=== PATIENT | female | born 1995 | race African-American/Black ===

== ENCOUNTER 2016-11-08 22:10 | Emergency (ER) | payer OTHER ==
[~2016-11-08 22:10] MED LIST: BACT800T5 PO; EXCETAB PO; FERR325T PO; HYDR-3516 PO; LEVA500T PO
[2016-11-08 22:13] VITALS: BP 154/94; PULSE 57; RESP 16; TEMP 97.7; O2SAT 100
--- NOTE | 2016-11-08 22:51 | PD ---
Physical Exam Date Seen by Provider: Nov 08, 2016 Time Seen by Provider: 22:49 Narrative 21 YOBF 2-3 DAY H/O N/V, NOYOLA, GENERAL MALAISE. NO F/C .NO URINE PROBLEMS. LMP VSS. AWAITING BED PLACEMENT Data Data Last Documented VS Vital Signs Date Time Temp Pulse Resp B/P Pulse Ox O2 Delivery O2 Flow Rate FiO2 11/08/16 22:13 97.7 57 16 154/94 100 MDM Medical Record Reviewed: Yes Supervised Visit with MYA: Yes Ab Del Toro Nov 08, 2016 22:51
--- NOTE | 2016-11-08 23:03 | PD ---
HPI Chief Complaint: GI Complaint Time Seen by Provider: 23:02 Travel History International Travel<30 days: No Contact w/Intl Traveler<30days: No Traveled to known affect area: No History of Present Illness HPI Patient 21-year-old female presents with suprapubic abdominal pain over the past 2-3 days associated with some headache and some nausea without vomiting. Patient also endorses some vaginal discharge she states weight in nature. Denies a possibility for that she is sexually active and intermittently uses protection. She denies any constipation diarrhea. Denies any vaginal bleeding. States is never happened to her before. PFSH Past Medical History Diminished Hearing: No Psychiatric: No ?: Not LMP: 10/19/16 : 0 Para: 0 Past Surgical History Other Surgery: Yes (breast reduction, [place] Social History Alcohol Use: No Tobacco Use: No Substance Use: No Allergies-Medications (Allergen,Severity, Reaction): Coded Allergies: No Known Allergies (Unverified , 11/08/16) Reported Meds & Prescriptions Reported Meds & Active Scripts Active Flagyl (Metronidazole) 500 Mg Tab 500 Mg PO BID 7 Days Review of Systems Except as stated in HPI: all other systems reviewed are Neg Physical Exam Narrative GENERAL: Well-developed well-nourished no apparent distress, sitting upright in a stretcher comfortable. SKIN: Focused skin assessment warm/dry. HEAD: Atraumatic. Normocephalic. EYES: Pupils equal and round. No scleral icterus. No injection or drainage. ENT: No nasal bleeding or discharge. Mucous membranes pink and moist. NECK: Trachea midline. No JVD. CARDIOVASCULAR: Regular rate and rhythm. No murmur appreciated. RESPIRATORY: No accessory muscle use. Clear to auscultation. Breath sounds equal bilaterally. GASTROINTESTINAL: Abdomen soft, non-tender, nondistended. Hepatic and splenic margins not palpable. GENITOURINARY: Patient has normal external genitalia without any lesions or rash. There is scant creamy white discharge in the vaginal vault. No cervical motion tenderness no cervical irritation. No bimanual tenderness. Vaginal bleeding and cervix closed. Consistent with bacterial vaginosis. MUSCULOSKELETAL: No obvious deformities. No clubbing. No cyanosis. No edema. NEUROLOGICAL: Awake and alert. No obvious cranial nerve deficits. Motor grossly within normal limits. Normal speech. PSYCHIATRIC: Appropriate mood and affect; insight and judgment normal. Data Data Last Documented VS Vital Signs Date Time Temp Pulse Resp B/P Pulse Ox O2 Delivery O2 Flow Rate FiO2 11/09/16 02:51 98.1 65 18 129/81 100 Room Air Orders Urinalysis - C+S If Indicated (11/08/16 23:03) Ed Urine Pregnancytest Poc (11/08/16 23:03) Complete Blood Count With Diff (11/08/16 23:56) Basic Metabolic Panel (Bmp) (11/08/16 23:56) Ecg Monitoring (11/08/16 23:56) Iv Access Insert/Monitor (11/08/16 23:56) Oximetry (11/08/16 23:56) Sodium Chloride 0.9% Flush (Ns Flush) (11/09/16 00:00) Prochlorperazine Inj (Compazine Inj) (11/09/16 00:00) Diphenhydramine Inj (Benadryl Inj) (11/09/16 00:00) Wet Prep Profile (11/08/16 23:56) Gc And Chlamydia Pcr (11/08/16 23:56) Urine Culture (11/09/16 00:36) Labs Laboratory Tests Test 11/09/16 11/09/16 11/09/16 00:36 00:43 02:36 Urine Color YELLOW Urine Turbidity HAZY Urine pH 5.5 Urine Specific [place] 1.011 Urine Protein NEG mg/dL Urine Glucose (UA) NEG mg/dL Urine Ketones NEG mg/dL Urine Occult Blood NEG Urine Nitrite NEG Urine Bilirubin NEG Urine Urobilinogen LESS THAN 2.0 MG/DL Urine Leukocyte Esterase LARGE Urine RBC 9 /hpf Urine WBC 16 /hpf Urine Squamous Epithelial 37 /hpf Cells Urine Renal Epithelial Cells 2 /hpf Urine Bacteria RARE /hpf Urine Mucus FEW /lpf Microscopic Urinalysis Comment CULTURE INDICATED White Blood Count 8.7 TH/MM3 Red Blood Count 4.89 MIL/MM3 Hemoglobin 12.1 GM/DL Hematocrit 37.5 % Mean Corpuscular Volume 76.7 FL Mean Corpuscular Hemoglobin 24.7 PG Mean Corpuscular Hemoglobin 32.2 % Concent Red Cell Distribution Width 15.4 % Platelet Count 257 TH/MM3 Mean Platelet Volume 9.3 FL Neutrophils (%) (Auto) 47.2 % Lymphocytes (%) (Auto) 44.0 % Monocytes (%) (Auto) 5.5 % Eosinophils (%) (Auto) 2.4 % Basophils (%) (Auto) 0.9 % Neutrophils # (Auto) 4.1 TH/MM3 Lymphocytes # (Auto) 3.8 TH/MM3 Monocytes # (Auto) 0.5 TH/MM3 Eosinophils # (Auto) 0.2 TH/MM3 Basophils # (Auto) 0.1 TH/MM3 CBC Comment AUTO DIFF Differential Comment AUTO DIFF CONFIRMED Platelet Estimate NORMAL Platelet Morphology Comment NORMAL Sodium Level 139 MEQ/L Potassium Level 3.7 MEQ/L Chloride Level 102 MEQ/L Carbon Dioxide Level 29.0 MEQ/L Anion Gap 8 MEQ/L Blood Urea Nitrogen 5 MG/DL Creatinine 0.76 MG/DL Estimat Glomerular Filtration 114 ML/MIN Rate Random Glucose 84 MG/DL Calcium Level 8.7 MG/DL Clue Cells (Wet Prep) NONE SEEN Vaginal Trichomonas (Wet Prep) NONE SEEN Vaginal Yeast (Wet Prep) NONE SEEN Chlamydia trachomatis DNA NOT DETECTED (PCR) Neisseria gonorrhoeae DNA NOT DETECTED (PCR) MDM Medical Decision Making Medical Screen Exam Complete: Yes Emergency Medical Condition: Yes Differential Diagnosis Bacterial vaginosis, STD, headache, candidal vaginosis, . Highly doubt intracranial abnormality. Narrative Course Patient roomed emergency department, she was given Benadryl Compazine and had complete relief of her nausea vomiting abdominal pain and headache symptoms. Her physical exam is consistent with BV. Her labs reassuring. Urine is highly contaminated likely from the BV. 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 Did discuss STD risk patient thinks that she is fairly low risk. Discussed that I have sent an STD probe for gonorrhea and chlamydia and we will call her if the results are abnormal. Otherwise she stable for discharge at this time. Discussed and medic management return to ED criteria.. Patient states She does have a ride home. Diagnosis Primary Impression: BV (bacterial vaginosis) Additional Impression: Head ache Qualified Code: R51 - Nonintractable headache, unspecified chronicity pattern , unspecified headache type Med/Other Pt SpecificInfo: Prescription(s) given Scripts Metronidazole (Flagyl)500 Mg [id number] Mg PO BID 7 Days Ref 0 Prov:Milan Flores MD 11/09/16 Disposition: 01 DISCHARGE HOME Condition: Stable Milan Flores MD Nov 08, 2016 23:03
[2016-11-08 23:45] VITALS: BP 155/94; PULSE 52; RESP 18; O2SAT 100
[2016-11-09] MEDS ORDERED: PROCHLORPERAZINE INJ 10 MG/2 ML VIAL IVP ONE
[2016-11-09] MEDS ORDERED: SODIUM CHLORIDE 0.9% FLUSH 10 ML FLUSH IVF PRN
[2016-11-09] MEDS ORDERED: diphenhydrAMINE HCL 50 MG/ML VIAL IVP ONE
[2016-11-09 00:48] VITALS: O2SAT 99
[2016-11-09 01:05] LABS: BACTERIA, URINE RARE /hpf; BLOOD, URINE NEG (NEG); COMMENT (UR) CULTURE INDICATED; CULTURE IF INDICATED CULTURE INDICATED; GLUCOSE,URINE NEG (NEG); KETONE, URINE NEG (NEG); MUCUS URINE FEW /lpf (OCC); NITRITE,URINE NEG (NEG); PH, URINE 5.5 (5.0-8.5); RENAL EPITHELIAL CELLS 2 /hpf; SQUAMOUS EPITHELIAL CELL URINE 37 /hpf (0-5); URINE COLOR YELLOW (YELLW/STRAW)
[2016-11-09 01:05] LABS: AUTOMATED NEUTROPHIL # 4.1 TH/MM3 (1.8-7.7); BASOPHIL # 0.1 TH/MM3 (0-0.2); BASOPHIL % 0.9 % (0.0-2.0); EOSINOPHIL # 0.2 TH/MM3 (0-0.4); EOSINOPHIL % 2.4 % (0.0-4.0); HEMATOCRIT 37.5 % (35.0-46.0); LYMPHOCYTE # 3.8 TH/MM3 (1.0-4.8); MEAN CELL VOLUME 76.7 FL (80.0-100.0); MEAN CORPUSCULAR HEMOGLOBIN 24.7 PG (27.0-34.0); MEAN CORPUSCULAR HGB CONC 32.2 % (32.0-36.0); MONO % 5.5 % (0.0-8.0); NEUT % 47.2 % (16.0-70.0); PLATELET COUNT 257 TH/MM3 (150-450); RED BLOOD COUNT 4.89 MIL/MM3 (4.00-5.30); RED CELL DISTRIBUTION WIDTH 15.4 % (11.6-17.2); WHITE BLOOD COUNT 8.7 TH/MM3 (4.0-11.0)
[2016-11-09 01:08] LABS: HEMO FLAGS AUTO DIFF
[2016-11-09 01:15] LABS: POTASSIUM 3.7 MEQ/L (3.5-5.1)
[2016-11-09 02:09] LABS: PLATELET ESTIMATE SMEAR NORMAL (NORMAL); PLATELET MORPHOLOGY NORMAL (NORMAL); SCAN/DIFF AUTO DIFF CONFIRMED
[2016-11-09] MEDS ORDERED: METR-1 PO (02:40)
[2016-11-09 02:51] VITALS: BP 129/81; PULSE 65; RESP 18; TEMP 98.1; O2SAT 100
[2016-11-09 04:19] LABS: CHLAMYDIA PCR NOT DETECTED (NOT DETECT); NEISSERIA PCR NOT DETECTED (NOT DETECT)
== END 2016-11-09 03:18 | disposition home or self-care (01) ==
LOC: NEPE 22:10
DX: N76.0 Acute vaginitis (principal); B96.89 Other specified bacterial agents as the cause of diseases classified elsewhere; R51 Headache
CPT/HCPCS: 80048; 81001; 84703; 85025; 87086; 87210; 87491; 87591; 96374; 96375; 99284; J0780; J1200

== ENCOUNTER 2016-12-26 21:54 | Emergency (ER) | payer OTHER ==
[~2016-12-26 21:54] MED LIST changes: -BACT800T5 PO; -EXCETAB PO; -FERR325T PO; -HYDR-3516 PO; -LEVA500T PO; +METR-1 PO
[2016-12-26 21:56] VITALS: BP 117/68; PULSE 59; RESP 16; TEMP 99.2; O2SAT 100
--- NOTE | 2016-12-26 22:43 | PD ---
HPI Chief Complaint: Allergic/Adverse Reaction Time Seen by Provider: 22:43 Travel History International Travel<30 days: No Contact w/Intl Traveler<30days: No Traveled to known affect area: No History of Present Illness HPI 21-year-old female presents to emergency department for evaluation of possible reaction. Patient states around 8:00 this evening she ate some shrimp and other white fish and noticed red bumps forming on her face. She states these worsened and extended to her chest and upper extremities. She denies any oral sensation of swelling or sensation of throat closing. Denies any chest pain or tightness. States that the lesions itch. Denies any pain. States she has had shrimp and this fish in the past without reaction but has also had a similar reaction to an unknown substance. She cannot recall any other new exposures. No recent illnesses, fever, or chills. She has not started any new medications. She has no other symptoms reported this time. [facility] Past Medical History Medical History: Denies Significant Hx Diminished Hearing: No Psychiatric: No Tetanus Vaccination: Unknown Influenza Vaccination: No ?: Not LMP: 1 MONTH AGO : 0 Para: 0 Past Surgical History Other Surgery: Yes (breast reduction, [place]uction [place] 07[place]17 [place]) Social History Alcohol Use: No Tobacco Use: No Substance Use: No Allergies-Medications (Allergen,Severity, Reaction): Coded Allergies: No Known Allergies (Unverified , 12/26/16) Reported Meds & Prescriptions Reported Meds & Active Scripts Active No Active Prescriptions or Reported Medications Review of Systems Except as stated in HPI: all other systems reviewed are Neg Physical Exam Narrative GENERAL: Well-nourished female patient, in no acute distress SKIN: Focused skin assessment warm/dry. Mildly erythematous but blanchable wheals over the face, chest, and proximal upper extremities. HEAD: Atraumatic. Normocephalic. EYES: Pupils equal and round. No scleral icterus. No injection or drainage. ENT: Mucosa pink and moist. No erythema or exudates. No uvular edema. No uvular , palatal, or tonsillar deviation. Airway patent. Nasal turbinates appear normal without nasal blood, purulent drainage or septal hematoma. NECK: Trachea midline. No JVD. No stridor CARDIOVASCULAR: Regular rate and rhythm. No murmur appreciated. RESPIRATORY: No accessory muscle use. Clear to auscultation. Breath sounds equal bilaterally. GASTROINTESTINAL: Abdomen soft, non-tender, nondistended. Hepatic and splenic margins not palpable. MUSCULOSKELETAL: No obvious deformities. No clubbing. No cyanosis. No edema. NEUROLOGICAL: Awake and alert. No obvious cranial nerve deficits. Motor grossly within normal limits. Normal speech. PSYCHIATRIC: Appropriate mood and affect; insight and judgment normal. Data Data Last Documented VS Vital Signs Date Time Temp Pulse Resp B/P Pulse Ox O2 Delivery O2 Flow Rate FiO2 12/26/16 22:14 12/26/16 21:56 99.2 59 16 100 Room Air Orders Dexamethasone Inj (Decadron Inj) (12/26/16 22:45) Diphenhydramine (Benadryl) (12/26/16 22:45) Famotidine (Pepcid) (12/26/16 22:45) MDM Medical Decision Making Medical Screen Exam Complete: Yes Emergency Medical Condition: Yes Medical Record Reviewed: Yes Differential Diagnosis Allergic reaction versus urticarial rash versus contact dermatitis versus insect bite versus cellulitis Narrative Course 21-year-old female presents to the emergency department for evaluation of a possible allergic reaction. Patient appears without distress. She does have blanchable erythematous wheals on her face, chest, and upper extremities. Patient is given Benadryl, Decadron, and Pepcid. She is observed to ensure no further reaction. 0000 patient has remained stable. Symptoms are improving. She'll be discharged at this time. Diagnosis Primary Impression: Minor allergic reaction Qualified Code: T78.40XA - Minor allergic reaction, initial encounter Additional Impression: Urticaria Referrals: Primary Care Physician Patient Instructions: General Allergic Reaction (ED), General Instructions Departure Forms: Tests/Procedures, Work Release Enter return to work date: December 28, 2016 Additional Instructions: Avoid shellfish and fish until you follow-up with an neonatologist for further allergy testing Continue Benadryl as directed on the package over the next 24 hours. Then as needed for rash and itching Follow-up with a primary care provider Return immediately with any acute worsening of symptoms Med/Other Pt SpecificInfo: Prescription(s) given Scripts Prednisone 50 Mg Tab50 Mg PO DAILY 3 Days Ref 0 Prov:Hodan Madison 12/26/16 Ranitidine (Zantac)150 Mg [id number] Mg PO BID 3 Days Ref 0 Prov:Hodan Madison 12/26/16 Disposition: 01 DISCHARGE HOME Condition: Stable Hodan Madison December 26, 2016 22:43
[2016-12-26] MEDS ORDERED: diphenhydrAMINE HCL 50 MG CAP PO ONE (22:45)
[2016-12-26] MEDS ORDERED: DEXAMETHASONE SOD PHOS 20 MG/5 ML VIAL IM ONE (22:45)
[2016-12-26] MEDS ORDERED: FAMOTIDINE 20 MG TAB PO ONE (22:45)
[2016-12-26] MEDS ORDERED: ZANT150T2 PO (23:07)
[2016-12-26] MEDS ORDERED: PRED50 PO (23:07)
== END 2016-12-27 00:52 | disposition home or self-care (01) ==
LOC: NEPK 21:54
DX: T78.40XA Allergy, unspecified, initial encounter (principal); L50.9 Urticaria, unspecified
CPT/HCPCS: 96372; 99283; J1100; Q0163

== ENCOUNTER 2017-01-21 18:47 | Emergency (ER) | payer OTHER ==
[~2017-01-21] VITALS: Ht 175.3 cm; Wt 90.0 kg
[~2017-01-21 18:47] MED LIST changes: -METR-1 PO; +PRED50 PO; +ZANT150T2 PO
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
[2017-01-21 19:39] VITALS: BP 139/75; PULSE 65; RESP 22; TEMP 98.7; O2SAT 100
[2017-01-21] MEDS ORDERED: SODIUM CHLORIDE 0.9% FLUSH 10 ML FLUSH IVF PRN (19:45)
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
[2017-01-21 19:48] VITALS: O2SAT 100
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
[2017-01-21] MEDS ORDERED: NAPR500 PO (21:06)
[2017-01-21] MEDS ORDERED: CYCL1TAB29 PO (21:06)
[2017-01-21] MEDS ORDERED: NAPROXEN 500 MG TAB PO ONE (21:15)
[2017-01-21] MEDS ORDERED: CYCLOBENZAPRINE HCL 10 MG TAB PO ONE (21:15)
== END 2017-01-21 22:39 | disposition home or self-care (01) ==
LOC: NEPE 18:47
DX: S09.90XA Unspecified injury of head, initial encounter (principal); S16.1XXA Strain of muscle, fascia and tendon at neck level, initial encounter; M54.9 Dorsalgia, unspecified; V49.49XA Driver injured in collision with other motor vehicles in traffic accident, initial encounter; Y92.410 Unspecified street and highway as the place of occurrence of the external cause
CPT/HCPCS: 70450; 72072; 72100; 72125; 84703; 99285

== ENCOUNTER 2017-08-16 21:30 | Emergency (ER) | payer OTHER ==
[~2017-08-16 21:30] MED LIST changes: +EXCETAB31; -PRED50 PO; -ZANT150T2 PO
[2017-08-16 21:32] VITALS: BP 128/74; PULSE 60; RESP 16; TEMP 98.7; O2SAT 98
[2017-08-16 22:25] LABS: AUTOMATED NEUTROPHIL # 8.5 TH/MM3 (1.8-7.7); BASOPHIL # 0.1 TH/MM3 (0-0.2); BASOPHIL % 0.4 % (0.0-2.0); EOSINOPHIL # 0.1 TH/MM3 (0-0.4); EOSINOPHIL % 0.6 % (0.0-4.0); HEMATOCRIT 36.1 % (35.0-46.0); HEMOGLOBIN 12.3 GM/DL (11.6-15.3); LYMPH % 24.9 % (9.0-44.0); LYMPHOCYTE # 3.1 TH/MM3 (1.0-4.8); MEAN CELL VOLUME 82.8 FL (80.0-100.0); MEAN CORPUSCULAR HEMOGLOBIN 28.3 PG (27.0-34.0); MEAN CORPUSCULAR HGB CONC 34.2 % (32.0-36.0); MEAN PLATELET VOLUME 9.4 FL (7.0-11.0); MONO % 5.1 % (0.0-8.0); MONOCYTE # 0.6 TH/MM3 (0-0.9); PLATELET COUNT 265 TH/MM3 (150-450); RED BLOOD COUNT 4.36 MIL/MM3 (4.00-5.30); RED CELL DISTRIBUTION WIDTH 13.3 % (11.6-17.2); WHITE BLOOD COUNT 12.3 TH/MM3 (4.0-11.0)
[2017-08-16 22:43] LABS: ALBUMIN 3.8 GM/DL (3.4-5.0); ALT (GPT) 16 U/L (10-53); AST (GOT) 14 U/L (15-37); BLOOD UREA NITROGEN 4 MG/DL (7-18); CALCIUM 8.9 MG/DL (8.5-10.1); CHLORIDE 102 MEQ/L (98-107); CREATININE 0.82 MG/DL (0.50-1.00); GLOMERULAR FILTRATION RATE 104 ML/MIN (>89); GLUCOSE,RANDOM 94 MG/DL (74-106); SODIUM (NA) 135 MEQ/L (136-145)
[2017-08-16 23:00] LABS: ALKALINE PHOSPHATASE 64 U/L (45-117); TOTAL BILIRUBIN ADULT 0.6 MG/DL (0.2-1.0); TOTAL PROTEIN 8.3 GM/DL (6.4-8.2)
[2017-08-18] MEDS ORDERED: PREN1CAP33 (09:35)
[2017-08-18] MEDS ORDERED: PROM25TA10 PO (09:53)
[2017-08-23] MEDS ORDERED: TERC1SUP VAGINAL (08:28)
--- NOTE | 2017-08-24 12:20 | PD ---
HPI Chief Complaint: Related Problem Time Seen by Provider: 21:38 Travel History International Travel<30 days: No Contact w/Intl Traveler<30days: No Traveled to known affect area: No History of Present Illness HPI Pt is a 22-year-old female presenting to the emergency room for evaluation of nausea, vomiting, diarrhea. Symptom onset was sudden, it started 3 days ago. Patient is and states she is unable to keep anything down. She denies any fevers, abdominal pain, vaginal bleeding. There are no alleviating factors , symptoms are exacerbated with any oral intake. She states she went to her primary doctor who prescribed Phenergan but this is not alleviating her symptoms. PFSH Past Medical History Medical History: Denies Significant Hx Diminished Hearing: No Psychiatric: No ?: : 0 Para: 0 Past Surgical History Other Surgery: Yes (breast reduction, liposuction on 07/17 in [facility] [place]) Social History Alcohol Use: No Tobacco Use: No Substance Use: No Allergies-Medications (Allergen,Severity, Reaction): Coded Allergies: No Known Allergies (Unverified Allergy, Unknown, 08/18/17) Reported Meds & Prescriptions Reported Meds & Active Scripts Active Terconazole Vaginal Supp 80 Mg Supp 80 Mg VAGINAL HS Phenergan (Promethazine HCl) 25 Mg Tablet 25 Mg PO Q6H PRN Reported Vitafol Fe+ 90-1-200 & 50 mg ( Vit W/ Fe Polysacch C) 90 Mg Iron-1 Mg- 50 Mg-200 Mg Cap Excedrin Migraine Caplet (Aspirin/Acetaminophen/Caffeine) 250 Mg-250 Mg-65 Mg Tablet Review of Systems Except as stated in HPI: all other systems reviewed are Neg HENT: No: Headaches Cardiovascular: No: Chest Pain or Discomfort Respiratory: No: Shortness of Breath Gastrointestinal: Positive: Nausea, Vomiting, Diarrhea, No: Abdominal Pain Genitourinary: No: Pelvic Pain, Discharge, Vaginal Bleeding Physical Exam Narrative GENERAL: Well-developed, well-nourished, well-appearing female. Presenting in no acute distress. SKIN: Warm and dry. HEAD: Normocephalic. EYES: No scleral icterus. No injection or drainage. CARDIOVASCULAR: Regular rate RESPIRATORY: No accessory muscle use. Data Data Orders Orders Beta Hcg (Quant/Titer) (08/16/17 21:43) Complete Blood Count With Diff (08/16/17 21:43) Comprehensive Metabolic Panel (08/16/17 21:43) Ed Urine Pregnancytest Poc (08/16/17 21:43) Influenzae A/B Antigen (08/16/17 21:43) Labs Laboratory Tests Test 08/16/17 21:15 White Blood Count 12.3 TH/MM3 Red Blood Count 4.36 MIL/MM3 Hemoglobin 12.3 GM/DL Hematocrit 36.1 % Mean Corpuscular Volume 82.8 FL Mean Corpuscular Hemoglobin 28.3 PG Mean Corpuscular Hemoglobin Concent 34.2 % Red Cell Distribution Width 13.3 % Platelet Count 265 TH/MM3 Mean Platelet Volume 9.4 FL Neutrophils (%) (Auto) 69.0 % Lymphocytes (%) (Auto) 24.9 % Monocytes (%) (Auto) 5.1 % Eosinophils (%) (Auto) 0.6 % Basophils (%) (Auto) 0.4 % Neutrophils # (Auto) 8.5 TH/MM3 Lymphocytes # (Auto) 3.1 TH/MM3 Monocytes # (Auto) 0.6 TH/MM3 Eosinophils # (Auto) 0.1 TH/MM3 Basophils # (Auto) 0.1 TH/MM3 CBC Comment DIFF FINAL Differential Comment Blood Urea Nitrogen 4 MG/DL Creatinine 0.82 MG/DL Random Glucose 94 MG/DL Total Protein 8.3 GM/DL Albumin 3.8 GM/DL Calcium Level 8.9 MG/DL Alkaline Phosphatase 64 U/L Aspartate Amino Transf (AST/SGOT) 14 U/L Alanine Aminotransferase (ALT/SGPT) 16 U/L Total Bilirubin 0.6 MG/DL Sodium Level 135 MEQ/L Potassium Level 3.6 MEQ/L Chloride Level 102 MEQ/L Carbon Dioxide Level 25.0 MEQ/L Anion Gap 8 MEQ/L Estimat Glomerular Filtration Rate 104 ML/MIN Human Chorionic Gonadotropin, Quant 26414 MIU/ML [facility] Medical Decision Making Medical Screen Exam Complete: Yes Emergency Medical Condition: Yes Differential Diagnosis Viral syndrome versus gastroenteritis versus gastritis versus metabolic abnormality versus hyperemesis gravidarum versus other Narrative Course Patient is a 22-year-old female presenting to emergency department for evaluation of nausea, vomiting and diarrhea. She is approximately 7-8 weeks by her report. Patient vital signs reviewed, they are stable. Patient is awaiting bed placement. Protocol initiated in triage. Patient presented back to the triage desk stating that she needed to leave. Patient was encouraged to stay in be completely evaluated. Patient continued to decline further evaluation. Patient left AMA. AMA: The risks of leaving against medical advice without further evaluation treatment were discussed with the patient. These risks include cardiac dysfunction, cardiac dysrhythmia, possible heart attack, possible stroke or . The patient indicated understanding of these risks and appeared to have the capacity to make this decision. Patient's labs reviewed, slight elevation in white blood cell count, may be secondary to the vomiting/inflammatory response. HCG level is 28,319 Diagnosis Primary Impression: Left against medical advice Disposition: 07 AGAINST MEDICAL ADVICE Melissa Pillai Aug 24, 2017 12:20
== END 2017-08-16 22:45 | disposition left against medical advice (07) ==
LOC: NED 21:30
DX: O21.9 Vomiting of pregnancy, unspecified (principal); Z3A.01 Less than 8 weeks gestation of pregnancy
CPT/HCPCS: 80053; 84702; 85025; 87804; 99283

== ENCOUNTER 2017-09-19 19:48 | Emergency (ER) | payer OTHER ==
[~2017-09-19] VITALS: Ht 174 cm; Wt 95.0 kg
[~2017-09-19 19:48] MED LIST changes: +PREN1CAP33; +PROM25TA10 PO; +TERC1SUP VAGINAL
[2017-09-19 20:36] VITALS: BP 122/66; PULSE 77; RESP 14; TEMP 98.7; O2SAT 100
[2017-09-19 21:40] VITALS: BP 116/53; PULSE 69; RESP 18; O2SAT 100
[2017-09-19] MEDS ORDERED: SODIUM CHLOR 0.9% 1000 ML INJ 1,000 ML IV SCH (21:50)
[2017-09-19] MEDS ORDERED: REGL10TA5 PO (21:57)
[2017-09-19] MEDS ORDERED: ZOFR4TAB3 SL (21:57)
--- NOTE | 2017-09-19 21:57 | PD ---
HPI Chief Complaint: GI Complaint Time Seen by Provider: 21:46 Travel History International Travel<30 days: No Contact w/Intl Traveler<30days: No Traveled to known affect area: No History of Present Illness HPI ONSET OF MULTIPLE N/V EPISODES TODAY, WITH FOODSTUFF IN IT HOWEVER THE LAST ONE HAD SOME STREAKS OF BLOOD IN IT WELL AND IT CONCERNED PATIENT. THIS HAS NEVER HAPPENED BEFORE..... ALL:NKDA PMHX DENIES PSHX DENIES PFSH Past Medical History Diminished Hearing: No Psychiatric: No Tetanus Vaccination: < 5 Years Influenza Vaccination: Yes ?: LMP: 07/03/17 : 0 Para: 0 Past Surgical History Other Surgery: Yes (breast reduction, liposuction on 07/[place] in [place]) Social History Alcohol Use: No Tobacco Use: No Substance Use: Yes (Marijuana OCC) Allergies-Medications (Allergen,Severity, Reaction): Coded Allergies: No Known Allergies (Unverified Allergy, Unknown, 09/19/17) Reported Meds & Prescriptions Reported Meds & Active Scripts Active Reglan (Metoclopramide HCl) 10 Mg Tab 10 Mg PO QID Zofran Odt (Ondansetron Odt) 4 Mg Tab 4 Mg SL Q6HR PRN Terconazole Vaginal Supp 80 Mg Supp 80 Mg VAGINAL HS Phenergan (Promethazine HCl) 25 Mg Tablet 25 Mg PO Q6H PRN Reported Vitafol Fe+ 90-1-200 & 50 mg ( Vit W/ Fe Polysacch C) 90 Mg Iron-1 Mg- 50 Mg-200 Mg Cap Excedrin Migraine Caplet (Aspirin/Acetaminophen/Caffeine) 250 Mg-250 Mg-65 Mg Tablet Physical Exam Narrative GENERAL: SKIN: Warm and dry. HEAD: Atraumatic. Normocephalic. EYES: Pupils equal and round. No scleral icterus. No injection or drainage. ENT: No nasal bleeding or discharge. Mucous membranes pink and moist. NECK: Trachea midline. No JVD. CARDIOVASCULAR: Regular rate and rhythm. RESPIRATORY: No accessory muscle use. Clear to auscultation. Breath sounds equal bilaterally. GASTROINTESTINAL: Abdomen soft, non-tender, nondistended. MUSCULOSKELETAL: Extremities without clubbing, cyanosis, or edema. No obvious deformities. NEUROLOGICAL: Awake and alert. No obvious cranial nerve deficits. Motor grossly within normal limits. Five out of 5 muscle strength in the arms and legs. Normal speech. PSYCHIATRIC: Appropriate mood and affect; insight and judgment normal. Data Data Last Documented VS Vital Signs Date Time Temp Pulse Resp B/P (MAP) Pulse Ox O2 Delivery O2 Flow Rate FiO2 09/20/17 00:03 58 16 107/63 (78) 99 09/19/17 22:08 Room Air 09/19/17 20:36 98.7 Orders Orders Beta Hcg (Quant/Titer) (09/19/17 21:50) Complete Blood Count With Diff (09/19/17 21:50) Comprehensive Metabolic Panel (09/19/17 21:50) Lipase (09/19/17 21:50) Urinalysis - C+S If Indicated (09/19/17 21:50) Iv Access Insert/Monitor (09/19/17 21:50) Ecg Monitoring (09/19/17 21:50) Oximetry (09/19/17 21:50) NPO (09/19/17 21:50) Ondansetron Inj (Zofran Inj) (09/19/17 22:00) Sodium Chlor 0.9% 1000 Ml Inj (Ns 1000 M (09/19/17 21:50) Ed Discharge Order (09/19/17 23:24) Urine Culture (09/19/17 23:00) Labs Laboratory Tests Test 09/19/17 22:00 09/19/17 23:00 White Blood Count 10.1 TH/MM3 Red Blood Count 4.41 MIL/MM3 Hemoglobin 12.1 GM/DL Hematocrit 36.3 % Mean Corpuscular Volume 82.4 FL Mean Corpuscular Hemoglobin 27.4 PG Mean Corpuscular Hemoglobin Concent 33.3 % Red Cell Distribution Width 12.9 % Platelet Count 241 TH/MM3 Mean Platelet Volume 8.6 FL Neutrophils (%) (Auto) 71.3 % Lymphocytes (%) (Auto) 23.2 % Monocytes (%) (Auto) 3.8 % Eosinophils (%) (Auto) 1.2 % Basophils (%) (Auto) 0.5 % Neutrophils # (Auto) 7.1 TH/MM3 Lymphocytes # (Auto) 2.4 TH/MM3 Monocytes # (Auto) 0.4 TH/MM3 Eosinophils # (Auto) 0.1 TH/MM3 Basophils # (Auto) 0.1 TH/MM3 CBC Comment DIFF FINAL Differential Comment Blood Urea Nitrogen 5 MG/DL Creatinine 0.63 MG/DL Random Glucose 85 MG/DL Total Protein 7.8 GM/DL Albumin 3.6 GM/DL Calcium Level 8.9 MG/DL Alkaline Phosphatase 49 U/L Aspartate Amino Transf (AST/SGOT) 20 U/L Alanine Aminotransferase (ALT/SGPT) 29 U/L Total Bilirubin 0.5 MG/DL Sodium Level 135 MEQ/L Potassium Level 3.9 MEQ/L Chloride Level 102 MEQ/L Carbon Dioxide Level 26.6 MEQ/L Anion Gap 6 MEQ/L Estimat Glomerular Filtration Rate 140 ML/MIN Lipase 106 U/L Human Chorionic Gonadotropin, Quant 94951 MIU/ML Urine Color YELLOW Urine Turbidity SLIGHT Urine pH 6.0 Urine Specific [place] 1.021 Urine Protein NEG mg/dL Urine Glucose (UA) NEG mg/dL Urine Ketones 40 mg/dL Urine Occult Blood TRACE Urine Nitrite NEG Urine Bilirubin NEG Urine Leukocyte Esterase LARGE Urine RBC 4-9 /hpf Urine WBC 9-14 /hpf Urine WBC Clumps OCC Urine Squamous Epithelial Cells 0-5 /hpf Urine Amorphous Sediment FEW Urine Bacteria FEW /hpf Urine Mucus MOD /lpf Urine Yeast (Budding) RARE Microscopic Urinalysis Comment CULTURE INDICATED MDM Medical Decision Making Medical Screen Exam Complete: Yes Emergency Medical Condition: Yes Medical Record Reviewed: Yes Differential Diagnosis hyperemesis gravidarum v donny ramos v pancreatitis v hepatitis v electrolyte abnl Narrative Course no evidence of hellp syndrome or eclampsia/preecalmpsia. patient's lipase and lft's were wnl. patient is and it is likely hyperemesis gravidarum with eventual donny ramos....patient has tolerated po and without further vomiting episodes. patient felt well and requested d/c home despite the fact that her UA was not resulted. patient given antiemetics to go home on. Diagnosis Primary Impression: POSS DONNY RAMOS Additional Impression: Hyperemesis gravidarum Patient Instructions: Acute Nausea and Vomiting (ED), General Instructions Scripts Metoclopramide (Reglan) 10 Mg Tab 10 MG PO QID, #15 TAB 0 Refills Prov: Johnathan Mcqueen MD 09/19/17 Ondansetron Odt (Zofran Odt) 4 Mg Tab 4 MG SL Q6HR Y for Nausea/Vomiting, #20 TAB 0 Refills Prov: Johnathan Mcqueen MD 09/19/17 Disposition: 01 DISCHARGE HOME Condition: Stable Johnathan Mcqueen MD Sep 19, 2017 21:57
[2017-09-19] MEDS ORDERED: ONDANSETRON HCL 4 MG/2 ML VIAL IVP ONE (22:00)
[2017-09-19 22:06] LABS: AUTOMATED NEUTROPHIL # 7.1 TH/MM3 (1.8-7.7); BASOPHIL # 0.1 TH/MM3 (0-0.2); BASOPHIL % 0.5 % (0.0-2.0); EOSINOPHIL # 0.1 TH/MM3 (0-0.4); EOSINOPHIL % 1.2 % (0.0-4.0); HEMATOCRIT 36.3 % (35.0-46.0); HEMOGLOBIN 12.1 GM/DL (11.6-15.3); LYMPH % 23.2 % (9.0-44.0); LYMPHOCYTE # 2.4 TH/MM3 (1.0-4.8); MEAN CELL VOLUME 82.4 FL (80.0-100.0); MEAN CORPUSCULAR HEMOGLOBIN 27.4 PG (27.0-34.0); MEAN CORPUSCULAR HGB CONC 33.3 % (32.0-36.0); MEAN PLATELET VOLUME 8.6 FL (7.0-11.0); MONO % 3.8 % (0.0-8.0); MONOCYTE # 0.4 TH/MM3 (0-0.9); NEUT % 71.3 % (16.0-70.0); PLATELET COUNT 241 TH/MM3 (150-450); RED BLOOD COUNT 4.41 MIL/MM3 (4.00-5.30); RED CELL DISTRIBUTION WIDTH 12.9 % (11.6-17.2); WHITE BLOOD COUNT 10.1 TH/MM3 (4.0-11.0)
[2017-09-19 22:08] VITALS: O2SAT 98
[2017-09-19 22:16] LABS: CHLORIDE 102 MEQ/L (98-107); SODIUM (NA) 135 MEQ/L (136-145)
[2017-09-19 22:19] LABS: ALBUMIN 3.6 GM/DL (3.4-5.0); CALCIUM 8.9 MG/DL (8.5-10.1); GLUCOSE,RANDOM 85 MG/DL (74-106)
[2017-09-19 22:20] LABS: BICARBONATE 26.6 MEQ/L (21.0-32.0); BLOOD UREA NITROGEN 5 MG/DL (7-18)
[2017-09-19 22:22] LABS: ALT (GPT) 29 U/L (10-53)
[2017-09-19 22:23] LABS: AST (GOT) 20 U/L (15-37); CREATININE 0.63 MG/DL (0.50-1.00); GLOMERULAR FILTRATION RATE 140 ML/MIN (>89)
[2017-09-19 22:24] LABS: TOTAL BILIRUBIN ADULT 0.5 MG/DL (0.2-1.0); TOTAL PROTEIN 7.8 GM/DL (6.4-8.2)
[2017-09-19 22:25] LABS: ALKALINE PHOSPHATASE 49 U/L (45-117)
[2017-09-19 23:21] LABS: BILIRUBIN, URINE NEG (NEG); BLOOD, URINE TRACE (NEG); GLUCOSE,URINE NEG (NEG); KETONE, URINE 40 mg/dL (NEG); NITRITE,URINE NEG (NEG); URINE LEUKOCYTE ESTERASE LARGE (NEG)
[2017-09-19 23:26] LABS: URINE COLOR YELLOW (YELLW/STRAW)
[2017-09-19 23:27] LABS: MUCUS URINE MOD /lpf (OCC); SQUAMOUS EPITHELIAL CELL URINE 0-5 /hpf (0-5)
[2017-09-19 23:28] LABS: WHITE BLOOD CELL CLUMPS OCC
[2017-09-19 23:29] LABS: BACTERIA, URINE FEW /hpf
[2017-09-19 23:32] LABS: AMORPHOUS SEDIMENT, URINE FEW
[2017-09-20 00:03] VITALS: BP 107/63
== END 2017-09-20 00:06 | disposition home or self-care (01) ==
LOC: PHED 19:48
DX: O21.0 Mild hyperemesis gravidarum (principal); R82.99 Other abnormal findings in urine; Z3A.00 Weeks of gestation of pregnancy not specified
CPT/HCPCS: 80053; 81001; 83690; 84702; 85025; 87086; 96361; 96374; 99284; J2405; J7030

== ENCOUNTER → 2017-11-21 | Outpatient (CLI) | payer OTHER ==
[~2017-11-21] MED LIST changes: +REGL10TA5 PO; +ZOFR4TAB3 SL
== END ==
LOC: HPND 09:47
PROVIDERS: ATTEND Obstetrics & Gynecology
DX: O35.2XX0 Maternal care for (suspected) hereditary disease in fetus, not applicable or unspecified (principal); O99.212 Obesity complicating pregnancy, second trimester; E66.09 Other obesity due to excess calories; Z68.30 Body mass index [BMI] 30.0-30.9, adult
CPT/HCPCS: 76811